=== PATIENT | female | born 1990 | race Hispanic/Latino ===

== ENCOUNTER 2019-04-03 20:26 | Observation (INO) | payer BC ==
[2019-04-03] MEDS ORDERED: hydrALAZINE 20 MG/ML VIAL SLOW IVP PRN (20:43)
--- NOTE | 2019-04-03 22:11 | PDOC.LDHP ---
Labor and Delivery H&P Chief complaint: decreased movement, other (N/V/D) HPI: 28YO @ 24.3 WGA presenting for evaluation for N/V/D and decreased movement. Patient reports a h/o hyperemesis with all of her pregnancies, including this one, but reports that for the last 2-3 days she has been vomiting anywhere from 10-14 times/day with associated diarrhea stools and fever up to 101F taken orally at home. Reports the nausea and vomiting became so bad that she was unable to keep even liquids down and earlier today she stopped feeling regular movement so came to hospital for evaluation. Denies any recent sick contacts, hematemesis, melena, or hematochezia but does report mucus in her stools. Also endorses associated myalgias but denies any cough, congestion or sore throat. Does report having a headache from her frequent vomiting. No vaginal bleeding, abnormal discharge or LOF. Reports improved movement since arriving to L&D. Current gestational age (weeks): 24 (24.3) Grav: 4 Para: 2 (2011) OB History Details: preg #1: Term pLTCS for dystocia (fetus reportedly stuck in canal per patient) preg #2: IUFD @ ~17 WGA preg #3: term rLTCS preg #4: 24.3 WGA currently w/ anemia & hyperemesis in hyperemesis gravidarum in all prior pregnancies Current complications: none Abnormal US findings: No Past Medical History: none Current medications: pre-vitaliy vitamins Previous surgical history: low tranverse CS, cholecystectomy, other (gastric bypass) Allergies/Adverse Reactions: Allergies Allergy/AdvReac Type Severity Reaction Status Date / Time latex Allergy Verified 04/03/19 22:47 Social history: none - Physical Exam Vital signs reviewed and normal: yes General: NAD Lungs: nonlabored breathing Abdomen: gravid FHT: category 1, variability present Show Low contractions every: none noted - OB Labs GBS: unknown Urine drug screen: not done - Plan -: 28YO @ 24.3 WGA presenting w/ N/V/D and decreased movement that improved once on L&D. N/V/D on superimposed hyperemesis in : - Per history most likely a viral gastroenteritis. Will get basic labs & replace electrolytes PRN. - PRN zofran, reglan & phenergan for N/V. - s/p 1L in L&D & will continue IVFs overnight w/ LR @ 130mL/hr. - Stool studies ordered should patient continue to have diarrhea stools to r/o bacterial source for diarrhea. sIUP @ 24.3 WGA: - Aware, patient unable to tolerate PO now but will continue PNVs once tolerating PO. - FHTs difficult to clam picker but variability noted some while on monitor & patient endorsed increased movment once getting to L&D. - Continue care with Dr. Billy, PCP. Anemia in : - Patient reports a h/o anemia in and states she has been unable to tolerate or afford PO iron. - CBC pending & will discuss case with PCP & consider an iron infusion since keeping overnight in the hospital anyway pending Hgb results. Dispo: Will admit to [facility] floor for IVFs & antimemetics overnight & PO challenge in the AM. Addendum - Attending - Attending Attestation Date/Time: 04/04/19 0004 I personally evaluated the patient and discussed the management with Dr. Ge. I agree with the History, Examination, Assessment and Plan documented above with any addition or exceptions noted below. Dr. Billy notified, will see patient tomorrow around noon.
[2019-04-03] MEDS ORDERED: Lactated Ringer's 1,000 ML IV SCH (22:30)
[2019-04-03 22:46] VITALS: BMI 29.7
[2019-04-03] MEDS ORDERED: Ondansetron PF 4 MG/2 ML Vial IVP PRN (22:52)
[2019-04-03] MEDS ORDERED: Promethazine HCl 25 MG/ML VIAL IM PRN (22:52)
[2019-04-03] MEDS ORDERED: Metoclopramide HCl 10 MG/2 ML VIAL IVP PRN (23:00)
[2019-04-04] MEDS: Ondansetron PF 4 MG/2 ML Vial IVP SCH ×3 (00:09→11:22)
[2019-04-04 00:25] LABS: #Eosinphils 0.1 thou/uL (0.0-0.7); #Lymphocytes 1.3 thou/uL (1.20-3.40); #Monocytes 0.4 thou/uL (0.11-0.59); #Neutrophils 3.1 thou/uL (1.40-6.50); %Basophils 0.4 % (0.0-1.0); %Eosinophils 1.2 % (0.0-10.0); %Lymphocytes 26.7 % (21.0-51.0); %Monocytes 8.3 % (0.0-10.0); %Neutrophils 63.5 % (42.0-75.0); Hemoglobin 10.3 g/dL (12.0-16.0); Mean Corpuscular HGB CONC 35.2 g/dL (32.0-36.0); Mean Corpuscular Hemoglobin 33.3 pg (27.0-31.0); Mean Corpuscular Volume 94.6 fL (78.0-98.0); Mean Platelet Volume 7.4 fL (7.4-10.4); Platelet Count 159 thou/uL (130-400); RBC Distribution Width 11.3 % (11.5-14.5); White Blood Cell (WBC) Count 4.9 thou/uL (4.8-10.8)
[2019-04-04 00:52] LABS: ALT (SGPT) Less than 7 U/L (8-55); AST (SGOT) 7 U/L (5-34); Alkaline Phosphatase 49 U/L (40-110); Anion Gap 9 mmol/L (10-20); BUN (Urea Nitrogen) 4 mg/dL (7.0-18.7); Bilirubin, Total 0.3 mg/dL (0.2-1.2); Calc. Creatinine Clearance 219 mL/min (70-130); Carbon Dioxide 23 mmol/L (22-29); Chloride 107 mmol/L (98-107); Estimated GFR-MDRD Greater than 90; Globulin 2.4 g/dL (2.4-3.5); Glucose 78 mg/dL (70-105); Potassium 3.4 mmol/L (3.5-5.1); Protein, Total 5.4 g/dL (6.0-8.3); Sodium 136 mmol/L (136-145)
[2019-04-04] MEDS: Lactated Ringer's 1,000 ML IV SCH ×2 (05:33→12:59)
[2019-04-04] MEDS ORDERED: Acetaminophen 500 MG TAB PO PRN (13:24)
--- NOTE | 2019-04-04 15:19 | PDOC.PP ---
Post Progress Note Subjective: 28 y/o at 24 weeks gestation admitted for N/V/D overnight for fluids/ amtiemetics. Patient has done very well overnight. Today - no further c/o diarrhea or vomiting. Nausea waxes and wains. PO intake tolerated: yes Flatus: yes Ambulation: yes Vital Signs (12 hours) Temp Pulse Resp BP Pulse Ox 04/04/19 12:00 98.1 F 57 L 20 98/51 L 04/04/19 08:00 98.4 F 64 20 98/54 L 99 04/04/19 04:00 98.2 F 71 17 110/65 Weight Weight 190 lb - Physical Examination General: NAD Cardiovascular: no m/r/g, RRR Respiratory: clear to auscultation bilaterally, non-labored breathing Abdominal: + bowel sounds, lochia, no distention, appropriately TTP Extremities: negative homans (B) Psychiatric: A&Ox3, normal affect Result Diagrams: 04/04/19 00:19 04/04/19 00:19 - Assessment/Plan Will try a regular diet, and proceed with DC to home if tolerated.
[2019-04-04 17:45] VITALS: BP 112/54; TEMP 98.9
== END 2019-04-04 18:30 | disposition home health service (06) ==
LOC: L&D/OP 20:26 → 3SW 23:50
PROVIDERS: ADMIT Obstetrics & Gynecology; ATTEND Obstetrics & Gynecology
DX: O36.8120 Decreased fetal movements, second trimester, not applicable or unspecified (principal); O21.2 Late vomiting of pregnancy; O34.211 Maternal care for low transverse scar from previous cesarean delivery; O99.012 Anemia complicating pregnancy, second trimester; D64.9 Anemia, unspecified; Z3A.24 24 weeks gestation of pregnancy; Z91.040 Latex allergy status
CPT/HCPCS: 36415; 80053; 85025; 96361; 96374; 96375; 96376; 99285; G0378; J2405; J2765

== ENCOUNTER 2019-07-07 09:52 | Inpatient (IN) | payer BC ==
[2019-07-07] MEDS ORDERED: hydrALAZINE 20 MG/ML VIAL SLOW IVP PRN ×2 (10:20→15:38)
[2019-07-07] MEDS ORDERED: Promethazine HCl 25 MG/ML VIAL IM PRN ×3 (10:20→15:38)
[2019-07-07] MEDS ORDERED: Ondansetron PF 4 MG/2 ML Vial IVP PRN ×3 (10:20→15:38)
--- NOTE | 2019-07-07 10:24 | PDOC.LDHP ---
Labor and Delivery H&P HPI: 29 y/o at 38 and 0/7 weeks with IUGR, Maternal Bariatric Surgery, Nutritional challenges, who presents for repeat today. Due date: 07/21/19 Grav: 4 Para: 2 Current complications: IUGR Abnormal US findings: Yes (IUGR) Current medications: pre- vitamins Previous surgical history: low tranverse CS, other (Lap Band Surgery) Allergies/Adverse Reactions: Allergies Allergy/AdvReac Type Severity Reaction Status Date / Time latex Allergy Verified 04/03/19 22:47 Social history: none - Physical Exam Vital signs reviewed and normal: yes General: NAD, resting Heart: RRR Lungs: CTAB Abdomen: gravid Extremeties: no edema FHT: category 1 - Assessment L&D Assessment: scheduled repeat section - Plan Plan: admit to L&D, to OR for section
[2019-07-07] MEDS ORDERED: Lactated Ringer's 1,000 ML IV SCH (10:30)
[2019-07-07] MEDS ORDERED: Bicitra 30 ML UDCUP PO SCH (10:30)
[2019-07-07] MEDS ORDERED: CEFAZOLIN 2 GM in Premix Bag 1 BAG IVPB SCH (10:45)
[2019-07-07 11:00] LABS: Hemoglobin 11.1 g/dL (12.0-16.0); Mean Corpuscular HGB CONC 34.2 g/dL (32.0-36.0); Mean Corpuscular Volume 90.6 fL (78.0-98.0); Platelet Count 177 thou/uL (130-400); RBC Distribution Width 12.6 % (11.5-14.5); Red Blood Cell (RBC) Count 3.58 mill/uL (4.20-5.40); White Blood Cell (WBC) Count 4.1 thou/uL (4.8-10.8)
[2019-07-07 11:07] VITALS: BMI 32.1
[2019-07-07] MEDS ORDERED: MORPHINE 5 MG/10 ML PF VIAL ONE (11:36)
[2019-07-07] MEDS ORDERED: EPHEDRINE 25 MG/5 ML SYRINGE ONE (11:37)
[2019-07-07] MEDS ORDERED: Ondansetron PF 4 MG/2 ML Vial ONE (11:37)
[2019-07-07] MEDS ORDERED: PHENYLEPHRINE-NS 100 MCG/ML 10 ML SYRINGE ONE (11:37)
[2019-07-07] MEDS ORDERED: Oxytocin 10 UNITS/ML VIAL ONE (11:37)
[2019-07-07 11:45] LABS: HBSAg Index 0.25 S/CO (0-0.99); Hep B Surf Ag Non-Reactive S/CO (NonReactive)
[2019-07-07 11:46] LABS: Syphilis Antibody Nonreactive (Nonreactive); Syphilis Antibody Index 0.03 S/CO (<1.00 Non-Reactive)
[2019-07-07] MEDS ORDERED: Naloxone HCl 0.4 mg/ml Vial IV PRN (11:47)
[2019-07-07] MEDS ORDERED: Naloxone HCl 0.4 mg/ml Vial IVP PRN ×2 (11:47)
[2019-07-07] MEDS ORDERED: Ondansetron HCl/PF 4 MG/2 ML Vial IVP PRN (11:47)
[2019-07-07] MEDS ORDERED: Promethazine HCl 25 MG SUPP PR PRN (11:47)
[2019-07-07] MEDS ORDERED: diphenhydrAMINE 50 MG/ML VIAL IVP PRN (11:47)
[2019-07-07] MEDS ORDERED: HYDROmorphone 2 MG/ML VIAL SLOW IVP PRN (11:47)
[2019-07-07] MEDS ORDERED: Meperidine HCl/PF 25 MG/ML VIAL SLOW IVP PRN (11:47)
[2019-07-07] MEDS ORDERED: L&D-Morphine 4 MG/ML VIAL SLOW IVP PRN (11:47)
[2019-07-07] MEDS ORDERED: Ketorolac Tromethamine 30 MG/ML VIAL IVP SCH (12:00)
[2019-07-07] MEDS ORDERED: Communication Order-Pharmacy FS SCH (12:00)
[2019-07-07] MEDS ORDERED: Ketamine 50 MG/ML (10ML VIAL) ONE (12:48)
[2019-07-07] MEDS ORDERED: Meperidine HCl/PF 25 MG/ML VIAL ONE (14:01)
[2019-07-07] MEDS ORDERED: diphenhydrAMINE 50 MG/ML VIAL ONE (14:51)
[2019-07-07] MEDS ORDERED: Methylergonovine 0.2 MG/ML VIAL IM PRN (15:38)
[2019-07-07] MEDS ORDERED: Bisacodyl 10 MG SUPP PR PRN (15:38)
[2019-07-07] MEDS ORDERED: NS / Oxytocin 40 units/1000ml 1,000 ML IV SCH (15:38)
[2019-07-07] MEDS ORDERED: Varicella virus, LIVE 0.5 ML VIAL SC ONE (15:38)
[2019-07-07] MEDS ORDERED: Misoprostol 200 MCG TAB PR PRN (15:38)
[2019-07-07] MEDS ORDERED: diphenhydrAMINE 25 MG CAP PO PRN (15:38)
[2019-07-07] MEDS ORDERED: Lanolin Ointment 7 GM TUBE TOP PRN (15:38)
[2019-07-07] MEDS ORDERED: Measles/Mumps/Rubella 10 MCG/0.5 ML VIAL SC ONE (15:38)
[2019-07-07] MEDS ORDERED: Adacel (T-DAP) 0.5 ML SYRINGE IM ONE (15:38)
[2019-07-07] MEDS: Ketorolac Tromethamine 30 MG/ML VIAL IVP PRN (21:05)
[2019-07-07] MEDS: Docusate Calcium (SURFAK) 240 MG CAP PO SCH (22:01)
[2019-07-07] MEDS ORDERED: Zolpidem Tartrate 5 MG TAB PO PRN (23:59)
[2019-07-08] MEDS: HYDROcodone/Acetaminophen 5/325 mg Tablet PO PRN ×5 (02:43→21:28)
[2019-07-08 05:50] LABS: Hemoglobin 9.3 g/dL (12.0-16.0); Mean Corpuscular HGB CONC 34.9 g/dL (32.0-36.0); Mean Corpuscular Hemoglobin 31.2 pg (27.0-31.0); Mean Corpuscular Volume 89.4 fL (78.0-98.0); Mean Platelet Volume 7.4 fL (7.4-10.4); Platelet Count 127 thou/uL (130-400); RBC Distribution Width 12.4 % (11.5-14.5); Red Blood Cell (RBC) Count 2.99 mill/uL (4.20-5.40)
[2019-07-08] MEDS: Ketorolac Tromethamine 30 MG/ML VIAL IVP PRN (06:23)
[2019-07-08] MEDS: Docusate Calcium (SURFAK) 240 MG CAP PO SCH ×2 (08:01→22:19)
[2019-07-08] MEDS: Ibuprofen 800 MG TAB PO SCH ×2 (13:52→22:17)
--- NOTE | 2019-07-08 18:42 | PDOC.PP ---
Post Progress Note Post Day #: 1 Vital Signs (12 hours) Temp Pulse Resp BP Pulse Ox 07/08/19 17:03 98.2 F 83 16 116/62 100 07/08/19 11:15 98.1 F 69 20 112/61 07/08/19 07:41 98.1 F 64 20 93/55 L 98 Weight Weight 205 lb Result Diagrams: 07/08/19 05:29 Additional Labs: Post Labs Blood Type A POSITIVE 07/07/19 11:07 Hep Bs Antigen Non-Reactive S/CO (NonReactive) 07/07/19 10:51 - Assessment/Plan Chart Review Only: Hb/HCT is stable POD1, after repeat 3rd . WBC NL. Vitals appear NL without fever. Will advance diet and encourage to ambulate this evening.
[2019-07-09 00:32] VITALS: TEMP 98.2
[2019-07-09] MEDS: Simethicone Chewable 80 MG TAB PO PRN ×2 (03:33→12:37)
[2019-07-09] MEDS: HYDROcodone/Acetaminophen 5/325 mg Tablet PO PRN ×4 (03:34→16:55)
[2019-07-09] MEDS: Ibuprofen 800 MG TAB PO SCH ×2 (05:05→14:46)
[2019-07-09] MEDS: Docusate Calcium (SURFAK) 240 MG CAP PO SCH (07:51)
--- NOTE | 2019-07-09 08:04 | OP ---
DATE OF PROCEDURE: 07/07/2019 TIME OF SERVICE: 1237 hours central daylight savings time. PREOPERATIVE DIAGNOSES: Intrauterine at 38 weeks and 0 days with a history of intrauterine growth restriction as well as a history of previous bariatric surgery. POSTOPERATIVE DIAGNOSES: Intrauterine at 38 weeks and 0 days with a history of intrauterine growth restriction as well as a history of previous bariatric surgery. PROCEDURE PERFORMED: Repeat third low-transverse section. FINDINGS: Viable male , weighing 2593 g or 5 pounds 11 ounces with Apgars 9 and 9. QUANTITATIVE BLOOD LOSS: 320 mL. COMPLICATIONS: None. DESCRIPTION OF PROCEDURE: The patient was consented and taken back to the operating room where spinal anesthesia was found to be adequate. She was then prepped and draped in the normal sterile fashion. A timeout was performed by the entire operative team. The incision was then marked with a marking pen tested using sharp pickups. An incision was then made with a scalpel. The incision was carried through the adipose tissue down to the underlying rectus fascia using both sharp dissection as well as cautery. Once the fascia was identified, it was incised in the midline and then the fascial incision was carried through in both lateral directions using sharp as well as cautery dissection techniques. Next, the superior aspect of the rectus fascia was grasped with 2 Jeremy clamps, which was tented up and the rectus muscles were dissected off using blunt dissection as well as cautery dissection. Similarly, the inferior aspect of the fascial incision was grasped with 2 Jeremy clamps, tented up and the rectus muscles were dissected off bluntly as well as sharply. Next, the rectus muscles were in the midline and the peritoneum identified. The peritoneum was then carefully grasped with 2 hemostats and entered sharply. The peritoneal incision was extended superiorly and inferiorly and bladder blade was placed in the lower abdomen. At this point, the uterus was identified and the bladder flap was then developed using pickups with teeth as well as Metzenbaum scissors in both lateral directions. The bladder flap was then dissected downwards using the journeyman operator assistant's finger as well as Metzenbaum scissors. The bladder blade was replaced. The lower uterine segment was then identified and entered sharply using a clean scalpel. The uterine incision was then dissected downwards until thin layer of muscle remained and this was entered bluntly using a hemostat to avoid any injury to the baby. The uterine incision was then stretched using two fingers in both lateral directions. An amniotomy was performed artificially using a hemostat and the baby was delivered using fundal pressure in a gentle fashion. Once out, the baby's mouth and nose were bulb suctioned, cord clamped and cut, and the baby was handed to waiting attendants. Next, the uterus was exteriorized, cleared of all clots and debris and the uterine incision was repaired with #1 Monocryl in a running locking fashion. A 2nd suture of the same type was used to obtain complete hemostasis at the uterine incision. The bladder flap was reapproximated using 3-0 Monocryl. Next, patient's left and right adnexa were inspected and appeared to be within normal limits. The posterior cul-de-sac was blotted dry and hemostasis assured. One more look at the uterine incision demonstrated hemostasis. Next, the uterus was replaced back within the abdomen. The peritoneum was reapproximated using 2-0 Monocryl without difficulty. The rectus muscles were then allowed to come back together and 0 chromic was used to aid in reapproximation of the muscle as necessary. The rectus fascia was then reapproximated in a running fashion using 0 Vicryl suture. The adipose tissue was then examined and appeared to be well approximated without any obvious separations. Finally, the skin was reapproximated with 3-0 Monocryl on a Silas needle without difficulty and Dermabond adhesive was applied to the skin. Once the glue was dry, the drapes were removed and the patient was transferred to an ambulatory bed where she was taken to recovery awake and in stable condition. Sponge, lap, and needle counts were correct x3. ADDENDUM: A small serosal uterine lesion was identified, which may represent a tiny fibroid. This was excised using Bovie cautery and additional suturing was not required. This was sent as a separate specimen to pathology for definitive diagnosis. Job ID: [id number]
[2019-07-09 11:46] VITALS: BP 110/55
== END 2019-07-09 18:05 | disposition home or self-care (01) | DRG 788 ==
LOC: L&D 09:52 → 3SW 16:06
PROVIDERS: ADMIT Obstetrics & Gynecology; ATTEND Obstetrics & Gynecology
PROC: 10D00Z1 Extraction of Products of Conception, Low, Open Approach (ICD-10-PCS; principal; 2019-07-07)
PROC: 0UB90ZZ Excision of Uterus, Open Approach (ICD-10-PCS; 2019-07-07)
PROC: 3E0234Z Introduction of Serum, Toxoid and Vaccine into Muscle, Percutaneous Approach (ICD-10-PCS; 2019-07-07)
DX: O36.5930 Maternal care for other known or suspected poor fetal growth, third trimester, not applicable or unspecified (principal); Z3A.38 38 weeks gestation of pregnancy; Z37.0 Single live birth; O34.211 Maternal care for low transverse scar from previous cesarean delivery; D25.2 Subserosal leiomyoma of uterus; O34.13 Maternal care for benign tumor of corpus uteri, third trimester; Z23 Encounter for immunization
CPT/HCPCS: 36415; 51702; 85027; 86780; 86850; 86900; 86901; 87340; 88305; 90715; J1200; J1885; J2175; J2274; J2405; J2590